=== PATIENT | female | born 1955 | race Hispanic/Latino ===

== ENCOUNTER 2019-08-27 16:42 | Emergency (ER) | payer BC, OTHER ==
[2019-08-28 13:49] LABS: SARS-CoV-2 MS2 Positive; SARS-CoV-2 N Gene Positive; SARS-CoV-2 S Gene Positive; SARS-CoV-2 orf1ab Positive
== END 2019-08-27 18:26 | disposition home or self-care (01) ==
LOC: ERS 16:42
DX: U07.1 COVID-19 (principal)
CPT/HCPCS: 87635; 99283; U0003